=== PATIENT | male | born 1990 | race Two or more races ===

== ENCOUNTER 2018-09-28 11:50 | Emergency (ER) | payer MEDICAID, OTHER ==
[~2018-09-28] VITALS: Ht 180.3 cm; Wt 94.3 kg
[2018-09-28 12:10] VITALS: BP 124/81
== END 2018-09-28 17:00 | disposition left against medical advice (07) ==
LOC: ER 11:50
DX: S90.551A Superficial foreign body, right ankle, initial encounter (principal); Z53.29 Procedure and treatment not carried out because of patient's decision for other reasons; W34.00XA Accidental discharge from unspecified firearms or gun, initial encounter; Y93.89 Activity, other specified; Y99.8 Other external cause status; Y92.89 Other specified places as the place of occurrence of the external cause
CPT/HCPCS: 73590